=== PATIENT | female | born 1990 | race Caucasian/White ===

== ENCOUNTER 2025-01-18 10:50 | Emergency (ER) | payer MEDICARE, OTHER ==
[~2025-01-18] VITALS: Ht 154.9 cm; Wt 56.0 kg
[~2025-01-18 10:50] MED LIST: AUGMENTIN600 MG/5 M PO; NORCO 5-325 TA1 EACH PO; ORTHO TRI-CYCL1 EACH PO; TEGRETOL XR100 MG PO; TOPAMAX100 MG PO; TOPAMAX50 MG PO; TOPIRAMATE100 MG PO
[2025-01-18] MEDS ORDERED: ZAFEMY 150-351 EACH TD (11:28)
[2025-01-18] MEDS ORDERED: LAMOTRIGINE100 MG PO (11:28)
[2025-01-18 13:19] VITALS: BP 102/75
== END 2025-01-18 13:39 | disposition home or self-care (01) ==
LOC: ED 10:50
DX: S62.613A Displaced fracture of proximal phalanx of left middle finger, initial encounter for closed fracture (principal); W19.XXXA Unspecified fall, initial encounter; Z79.899 Other long term (current) drug therapy; Z88.2 Allergy status to sulfonamides
CPT/HCPCS: 73130; 99283